=== PATIENT | female | born 1950 | race Caucasian/White ===

== ENCOUNTER 2017-06-27 10:56 | Emergency (ER) | payer MEDICARE, OTHER ==
[~2017-06-27] VITALS: Ht 157.5 cm; Wt 86.4 kg
[~2017-06-27 10:56] MED LIST: LANTUS SOLOS100 U/ML SC; WELCHOL 625MG625 MG PO; [UNRECOGNIZED DRUG - OTHER]
[2017-06-27 11:07] VITALS: TEMP 97.6
[2017-06-27 11:26] LABS: BASO % 0.1 % (0.0-2.0); EOS % 0.4 % (0-4.0); GRAN # 5.3 (1.4-6.5); GRAN % 72.3 % (42.2-75.2); HEMATOCRIT 40.4 % (37.0-47.0); LYMPH # 1.6 (1.2-3.4); LYMPH % 21.3 % (20.0-51.0); MEAN CELL VOLUME 84 fl (80.0-100.0); MEAN CORPUSCULAR HEMOGLOBIN 29 pg (27.0-31.0); MEAN CORPUSCULAR HGB CONC 35 g/dl (33.0-37.0); MEAN PLATELET VOLUME 11.6 fl (7.4-10.4); MONO # 0.4 (0.1-0.6); MONO % 5.2 % (1.7-9.3); PLATELET COUNT 192 K/mm3 (130-400); RED BLOOD COUNT 4.81 M/mm3 (4.10-5.30); REDCELL DISTRIBUTION WIDTH-CV 12.9 % (11.5-14.5)
[2017-06-27 11:32] LABS: INR 1.2 (0.8-3.0); PARTIAL THROMBOPLASTIN TIME 31.3 SECONDS (26.0-37.0); PROTHROMBIN TIME 13.7 SECONDS (9.7-12.8)
[2017-06-27 11:34] LABS: ALANINE AMINOTRANSFERASE 30 U/L (9-52); ALBUMIN 4.1 gm/dL (3.5-5.0); ALKALINE PHOSPHATASE 122 U/L (50-136); ANION GAP 14 mmol/L (7-16); AST,SGOT 28 U/L (15-37); BILIRUBIN,TOTAL 0.6 mg/dL (0.0-1.0); BLOOD UREA NITROGEN 12 mg/dL (7-17); CALCIUM 9.2 mg/dL (8.4-10.2); CARBON DIOXIDE 25 mmol/L (22-30); CHLORIDE 101 mmol/L (98-107); CREATININE, serum 0.57 mg/dL (0.52-1.25); GLUCOSE 202 mg/dL (74-106); SODIUM 141 mmol/L (137-145); TOTAL PROTEIN 7.7 gm/dL (6.4-8.2)
[2017-06-27] MEDS ORDERED: ELIQUIS 5MG PO (11:36)
[2017-06-27] MEDS ORDERED: KEPPRA SUSP100 MG/ML PO (11:36)
[2017-06-27 11:45] LABS: TROPONIN-I < 0.012 ng/mL (0.000-0.034)
[2017-06-27] MEDS ORDERED: ZESTRIL 10MG10 MG PO (12:10)
[2017-06-27] MEDS ORDERED: GLUCOPHAGE1000 MG PO (12:10)
[2017-06-27] MEDS ORDERED: VITAMIN B-6100 MG PO (12:10)
[2017-06-27] MEDS ORDERED: LIPITOR 10MG10 MG PO (12:11)
[2017-06-27] MEDS ORDERED: FLONASEALLERGY NS (12:11)
[2017-06-27] MEDS ORDERED: FLOVENT 110MCG7.9 GM IH (12:11)
[2017-06-27 15:45] VITALS: BP 126/79; PULSE 83
== END 2017-06-27 15:49 | disposition home or self-care (01) ==
LOC: COL.ER 10:56
PROVIDERS: Family Medicine
DX: I44.7 Left bundle-branch block, unspecified (principal); R07.89 Other chest pain; Z86.73 Personal history of transient ischemic attack (TIA), and cerebral infarction without residual deficits; Z79.01 Long term (current) use of anticoagulants; Z79.51 Long term (current) use of inhaled steroids; Z79.84 Long term (current) use of oral hypoglycemic drugs
CPT/HCPCS: C9113

== ENCOUNTER 2017-10-20 10:17 | Day surgery (SDC) | payer MEDICARE, OTHER ==
[~2017-10-20] VITALS: Ht 157.5 cm; Wt 87.7 kg
[2017-10-20] VITALS (10 sets, daily range): BP systolic 122–181; BP diastolic 47–100; PULSE 76–83; TEMP 97.6–98.2
[~2017-10-20 10:17] MED LIST changes: +ELIQUIS 5MG PO; +FLONASEALLERGY NS; +FLOVENT 110MCG7.9 GM IH; +GLUCOPHAGE1000 MG PO; +KEPPRA SUSP100 MG/ML PO; +LIPITOR 10MG10 MG PO; +VITAMIN B-6100 MG PO; +ZESTRIL 10MG10 MG PO
[2017-10-20] MEDS ORDERED: LEVOXYL0.025 MG PO (10:57)
[2017-10-20] MEDS ORDERED: NITROSTAT0.4 MG/TAB SL (10:58)
[2017-10-20 11:06] LABS: HEMATOCRIT 37.6 % (37.0-47.0); HEMOGLOBIN 12.9 g/dl (12.5-16.0); MEAN CELL VOLUME 84 fl (80.0-100.0); MEAN CORPUSCULAR HEMOGLOBIN 29 pg (27.0-31.0); MEAN CORPUSCULAR HGB CONC 34 g/dl (33.0-37.0); MEAN PLATELET VOLUME 11.2 fl (7.4-10.4); PLATELET COUNT 188 K/mm3 (130-400); RED BLOOD COUNT 4.47 M/mm3 (4.10-5.30); REDCELL DISTRIBUTION WIDTH-CV 13.2 % (11.5-14.5)
[2017-10-20 11:12] LABS: CALCIUM 8.6 mg/dL (8.4-10.2); CREATININE, serum 0.66 mg/dL (0.52-1.25); POTASSIUM 4.2 mmol/L (3.4-5.0)
[2017-10-20 11:18] LABS: PROTHROMBIN TIME 11.3 SECONDS (9.7-12.8)
== END 2017-10-20 16:55 | disposition home or self-care (01) ==
LOC: COL.CAR 10:17
PROVIDERS: Internal Medicine Interventional Cardiology
DX: I20.9 Angina pectoris, unspecified (principal); R94.39 Abnormal result of other cardiovascular function study; M79.604 Pain in right leg; M79.605 Pain in left leg; Z79.84 Long term (current) use of oral hypoglycemic drugs; Z79.01 Long term (current) use of anticoagulants; Z79.82 Long term (current) use of aspirin; Z95.818 Presence of other cardiac implants and grafts; Z88.0 Allergy status to penicillin; Z88.1 Allergy status to other antibiotic agents; Z91.040 Latex allergy status; Z86.73 Personal history of transient ischemic attack (TIA), and cerebral infarction without residual deficits; Z82.3 Family history of stroke; Z82.49 Family history of ischemic heart disease and other diseases of the circulatory system
CPT/HCPCS: J2250; J3010; Q9967